=== PATIENT | female | born 1955 | race Caucasian/White ===

== ENCOUNTER 2019-09-13 07:38 | Emergency (ER) | payer OTHER ==
[~2019-09-13] VITALS: Ht 165.1 cm; Wt 66.2 kg
[2019-09-13] MEDS ORDERED: SINGULAIR10 MG PO (07:51)
[2019-09-13] MEDS ORDERED: TIROSINT25 MCG PO (07:51)
== END 2019-09-13 13:19 | disposition home or self-care (01) ==
LOC: ER 07:38
DX: M25.511 Pain in right shoulder (principal)

== ENCOUNTER 2024-07-18 13:30 | Emergency (ER) | payer OTHER ==
[~2024-07-18] VITALS: Ht 165.1 cm; Wt 67.1 kg
[~2024-07-18 13:30] MED LIST: SINGULAIR10 MG PO; TIROSINT25 MCG PO
[2024-07-18] MEDS ORDERED: ZESTRIL2.5 MG (13:52)
[2024-07-18 15:10] LABS: PH,URINE 6.5 (5.0-8.0); URINE APPEARANCE Clear; URINE BILIRRUBIN Negative (NEGATIVE); URINE BLOOD Negative; URINE COLOR Yellow; URINE GLUCOSE Negative (NEGATIVE); URINE KETONE Trace (NEGATIVE); URINE LEUKOCYTE Small; URINE NITRATE Negative; URINE PROTEIN Negative (NEGATIVE); URINE UROBILINOGEN 0.2 E.U./dl
[2024-07-18 15:11] LABS: HEMOGLOBIN 13.5 g/dL (12.0-15.00); MEAN CELL VOLUME 91.6 fL (80.00-100.00); MEAN CORPUSCULAR HGB CONC 33.8 g/dl (32.0-36.0); PLATELET COUNT 248 K/uL (150-450); RED BLOOD COUNT 4.36 M/uL (4.00-6.00); RED CELL DISTRIBUTION WIDTH 14.1 % (11.5-14.5)
[2024-07-18 15:13] LABS: URINE BACTERIA 52.8 uL (0.0-1933); URINE RBC 24.5 uL (0.0-20.8); URINE WBC 10.2 uL (0.0-23.2)
[2024-07-18 15:31] LABS: BILIRUBIN TOTAL 0.89 mg/dL (0.3-1.2); CALCIUM 9.6 mg/dL (8.5-10.1); CREATININE SERUM 0.82 mg/dL (0.55-1.02); GFR 68.92; GLOBULINA 3.7 G/DL (2.4-3.5); POTASSIUM 3.97 mEq/L (3.5-5.1); TOTAL PROTEIN 7.7 gm/dL (6.4-8.2)
[2024-07-18] MEDS ORDERED: DEXAMETHASONE SODIUM PHOSPHATE 4 MG/ML VIAL IM STA (16:17)
[2024-07-18] MEDS ORDERED: ORPHENADRINE CITRATE 30 MG/ML AMPUL IM STA (16:18)
[2024-07-18] MEDS ORDERED: NORFLEX100MG PO (17:00)
== END 2024-07-18 17:33 | disposition home or self-care (01) ==
LOC: ER 13:31
DX: F41.9 Anxiety disorder, unspecified (principal); Z91.013 Allergy to seafood
CPT/HCPCS: 36415; 71046; 93005; 96372; 99283; J1100; J2360

== ENCOUNTER 2025-03-14 08:45 | Outpatient (CLI) | payer OTHER ==
[~2025-03-14 08:45] MED LIST changes: +NORFLEX100MG PO; +ZESTRIL2.5 MG
== END 2025-03-14 08:47 | disposition home or self-care (01) ==
LOC: SONOGRAMA 08:45
PROVIDERS: ATTEND Pathology Anatomic Pathology
DX: D34 Benign neoplasm of thyroid gland (principal); E07.89 Other specified disorders of thyroid; E04.2 Nontoxic multinodular goiter